=== PATIENT | female | born 1990 | race Caucasian/White ===

== ENCOUNTER → 2016-05-19 | Outpatient (CLI) | payer OTHER ==
[2016-05-19 12:29] LABS: LYMPH # 0.8 K/mm3 (0.7-4.5); LYMPH % 14.3 % (10-50.0)
[2016-05-19 12:34] LABS: HEMOGLOBIN 12.8 g/dL (12.2-16.2)
[2016-05-19 14:55] LABS: ABO BLOOD TYPE A; RH BLOOD TYPE POSITIVE
[2016-05-20 06:36] LABS: Rubella Antibodies, IgG 1.61 index (Immune >0.99)
[2016-05-20 08:40] LABS: HIV Screen 4th Generation wRfx Non Reactive (Non Reactive); Rapid Plasma Reagin, Quant Non Reactive (NonRea<1:1)
[2016-05-20 09:42] LABS: HBsAg Screen Negative (Negative)
== END ==
LOC: LAB 12:08
PROVIDERS: Nurse Practitioner Obstetrics & Gynecology
DX: Z34.00 Encounter for supervision of normal first pregnancy, unspecified trimester (principal)
CPT/HCPCS: G0432

== ENCOUNTER → 2016-12-03 | Outpatient (CLI) | payer OTHER ==
--- NOTE | 2016-12-04 10:28 | RADIOLOGY REPORT PS360 ---
US PREG FOLLOWUP SINGLE FETUS: Indication: GROWTH, LARGE GESTATIONAL AGE ORDERING PHYSICIAN: Malik Lanier MD PATIENT AGE: 26 years FINDINGS: There is a single live fetus present in cephalic presentation. heart and body motion are noted. The following parameters are obtained: Average ultrasound age is 37 weeks 2 days. Estimated due date by ultrasound is 12/22/2016. There has been adequate progression compared to the previous study of 08/14/2016. Estimated due date by last menstrual period is 01/02/2017.. Estimated weight is 3213 g which is 91 percentile. BPD: 37 weeks 6 days OFD: OFD HC: 37 weeks 4 days AC: 38 weeks 3 days FL: 35 weeks 2 days heart rate: 130 bpm. HC/AC: 0.96 Cephalic index: 80% FL/BPD: 74% FL/AC: 20% Amniotic fluid index: 13 cm Qualitative AFV: 2 breathing movements: 2 Gross body movements: 2 Tone: 2 Biophysical profile score: 8/8 Doppler evaluation of the umbilical artery: SD ratio: 2.3 Resistive index: 0.57 No obvious anomalies evident. Placenta: Lateral posterior and grade 2 Cervix: Appears closed and measures 3 cm IMPRESSION: Single live fetus in cephalic presentation with an average ultrasound age of 37 weeks 2 days. Estimated due date 12/22/2016. There has been adequate progression compared to the previous exam. Estimated weight is 3213 g which is 91 percentile. Normal biophysical profile an unremarkable umbilical artery Doppler evaluation
== END ==
LOC: RAD 08:51
DX: O36.63X1 Maternal care for excessive fetal growth, third trimester, fetus 1 (principal)

== ENCOUNTER → 2016-12-08 | Outpatient (CLI) | payer OTHER | LOC: LAB 18:47 | DX: Z34.80 Encounter for supervision of other normal pregnancy, unspecified trimester (principal) ==